=== PATIENT | male | born 1990 | race Caucasian/White ===

== ENCOUNTER 2021-04-27 12:16 | Emergency (ER) | payer SELFPAY ==
[~2021-04-27] VITALS: Ht 180 cm; Wt 83.0 kg
--- NOTE | 2021-04-27 13:00 | ED Psychosocial ---
General Stated Complaint: OD Source: patient Exam Limitations: no limitations History of Present Illness Date Seen by Provider: Apr 27, 2021 Time Seen by Provider: 13:00 Initial Comments This is a 30-year-old male presents to the ER with his dad for concerns of heroin overdose around 0500 this morning states that he was at [facility] for psychiatric evaluation. He can be admitted to [facility] for inpatient treatment of his alcohol and drug addiction. However psychiatry felt patient needed to go to ER in case Narcan wore off that he did have heroin treatment. Upon arrival patient is alert and oriented x4. He is cooperative, good eye contact, no suicidal or homicidal ideation. Only physical complaint this time is cramps in his bilateral lower extremities. Allergies and Home Medications Allergies Coded Allergies: No Known Drug Allergies (Unverified , 04/27/21) Physical Exam Vital Signs - First Documented 04/27/21 12:47 Temp 37.3 Pulse 99 Resp 18 B/P (MAP) 120/83 (95) O2 Delivery Room Air Capillary Refill : Height, Weight, BMI Height: '" Weight: lbs. oz. kg; BMI Method: Progress/Results/Core Measures Results/Orders Lab Results Laboratory Tests Test 04/27/21 13:47 04/27/21 14:05 Range/Units Urine Color YELLOW Urine Clarity CLEAR Urine pH 6.0 5-9 Urine Specific [place] >=1.030 1.016-1.022 Urine Protein TRACE H NEGATIVE Urine Glucose (UA) NEGATIVE NEGATIVE Urine Ketones 1+ H NEGATIVE Urine Nitrite NEGATIVE NEGATIVE Urine Bilirubin NEGATIVE NEGATIVE Urine Urobilinogen 0.2 < = 1.0 MG/DL Urine Leukocyte Esterase NEGATIVE NEGATIVE Urine RBC (Auto) 2+ H NEGATIVE Urine RBC 2-5 H /HPF Urine WBC 2-5 /HPF Urine Crystals PRESENT H /LPF Urine Amorphous Sediment MOD ALEXANDER URATES H /LPF Urine Bacteria NEGATIVE /HPF Urine Casts PRESENT /LPF Urine Hyaline Casts 2-5 H /LPF Urine Mucus SMALL H /LPF Urine Culture Indicated NO Urine Opiates Screen NEGATIVE NEGATIVE Urine Oxycodone Screen NEGATIVE NEGATIVE Urine Methadone Screen NEGATIVE NEGATIVE Urine Propoxyphene Screen NEGATIVE NEGATIVE Urine Barbiturates Screen NEGATIVE NEGATIVE Ur Tricyclic Antidepressants Screen NEGATIVE NEGATIVE Urine Phencyclidine Screen NEGATIVE NEGATIVE Urine Amphetamines Screen POSITIVE H NEGATIVE Urine Methamphetamines Screen POSITIVE H NEGATIVE Urine Benzodiazepines Screen POSITIVE H NEGATIVE Urine Cocaine Screen NEGATIVE NEGATIVE Urine Cannabinoids Screen NEGATIVE NEGATIVE White Blood Count 8.9 4.3-11.0 10^3/uL Red Blood Count 4.83 4.30-5.52 10^6/uL Hemoglobin 14.3 13.3-17.7 g/dL Hematocrit 44 40-54 % Mean Corpuscular Volume 90 80-99 fL Mean Corpuscular Hemoglobin 30 25-34 pg Mean Corpuscular Hemoglobin Concent 33 32-36 g/dL Red Cell Distribution Width 13.9 10.0-14.5 % Platelet Count 343 130-400 10^3/uL Mean Platelet Volume 9.2 9.0-12.2 fL Immature Granulocyte % (Auto) 1 % Neutrophils (%) (Auto) 66 42-75 % Lymphocytes (%) (Auto) 26 12-44 % Monocytes (%) (Auto) 7 0-12 % Eosinophils (%) (Auto) 0 0-10 % Basophils (%) (Auto) 0 0-10 % Neutrophils # (Auto) 5.9 1.8-7.8 10^3/uL Lymphocytes # (Auto) 2.3 1.0-4.0 10^3/uL Monocytes # (Auto) 0.7 0.0-1.0 10^3/uL Eosinophils # (Auto) 0.0 0.0-0.3 10^3/uL Basophils # (Auto) 0.0 0.0-0.1 10^3/uL Immature Granulocyte # (Auto) 0.1 0.0-0.1 10^3/uL Sodium Level 134 L 135-145 MMOL/L Potassium Level 3.8 3.6-5.0 MMOL/L Chloride Level 102 98-107 MMOL/L Carbon Dioxide Level 24 21-32 MMOL/L Anion Gap 8 5-14 MMOL/L Blood Urea Nitrogen 12 7-18 MG/DL Creatinine 1.00 0.60-1.30 MG/DL Estimat Glomerular Filtration Rate 87 BUN/Creatinine Ratio 12 Glucose Level 132 H 70-105 MG/DL Calcium Level 9.1 8.5-10.1 MG/DL Corrected Calcium 8.9 8.5-10.1 MG/DL Total Bilirubin 0.5 0.1-1.0 MG/DL Aspartate Amino Transf (AST/SGOT) 257 H 5-34 U/L Alanine Aminotransferase (ALT/SGPT) 220 H 0-55 U/L Alkaline Phosphatase 83 40-136 U/L Total Protein 7.7 6.4-8.2 GM/DL Albumin 4.2 3.2-4.5 GM/DL Amylase Level 759 H 25-125 U/L TSH [facility] Testing 0.39 0.35-4.94 UIU/ML Salicylates Level < 5.0 L 5.0-20.0 MG/DL Acetaminophen Level < 10 L 10-30 UG/ML Serum Alcohol < 10 <10 MG/DL My Orders Orders - ALICIA GAXIOLA APRN Ua Culture If Indicated (04/27/21 12:46) Drug Screen Stat (Urine) (04/27/21 12:46) Alcohol (04/27/21 12:46) Cbc With Automated Diff (04/27/21 12:59) Comprehensive Metabolic Panel (04/27/21 12:59) Acetaminophen (04/27/21 12:59) Salicylate (04/27/21 12:59) Ekg Tracing (04/27/21 12:59) Thyroid Analyzer (04/27/21 12:59) Amylase (04/27/21 12:59) Ns Iv 1000 Ml (Sodium Chloride 0.9%) (04/27/21 14:30) Medications Given in ED Current Medications Medications Dose Ordered Sig/Sandi Route Start Time Stop Time Status Last Admin Dose Admin Sodium Chloride 1,000 ml @ 999 mls/hr Q1H ONCE IV 04/27/21 14:30 04/27/21 15:30 DC 04/27/21 14:35 999 MLS/HR Vital Signs/I&O 04/27/21 12:47 Temp 37.3 Pulse 99 Resp 18 B/P (MAP) 120/83 (95) O2 Delivery Room Air Departure Impression Primary Impression: Alcohol abuse Additional Impression: Drug abuse Disposition: 01 HOME, SELF-CARE Condition: Improved Departure-Patient Inst. Decision time for Depature: 15:57 Referrals: NO,LOCAL PHYSICIAN (PCP/Family) Primary Care Physician Patient Instructions: Drug Abuse Treatment Add. Discharge Instructions: Plan: 1. Refrain from alcohol and drug intake. Please present to the alcohol treatment center and [facility] at 9:30 AM tomorrow morning. Drink plenty of fluids. 2. Make sure you drink plenty of fluids today. Please ensure someone stays with patient today. 3. Return to the ER if you have any new, concerning, worsening symptoms. ALICIA GAXIOLA [address] [employer] Apr 27, 2021 13:00
[2021-04-27 14:07] LABS: BILIRUBIN,URINE NEGATIVE (NEGATIVE); CLARITY,URINE CLEAR; COLOR,URINE YELLOW; GLUCOSE, URINE (UA) NEGATIVE (NEGATIVE); KETONES,URINE 1+ (NEGATIVE); LEUKOCYTE ESTERASE ,URINE NEGATIVE (NEGATIVE); NITRITE,URINE NEGATIVE (NEGATIVE); PROTEIN,URINE TRACE (NEGATIVE)
[2021-04-27 14:15] LABS: BASOPHILS % (AUTO) 0 % (0-10); EOSINOPHILS % (AUTO) 0 % (0-10); HEMATOCRIT 44 % (40-54); HEMOGLOBIN 14.3 g/dL (13.3-17.7); LYMPHOCYTES # (AUTO) 2.3 10^3/uL (1.0-4.0); LYMPHOCYTES % (AUTO) 26 % (12-44); MEAN CORPUSCULAR HEMOGLOBIN 30 pg (25-34); MEAN CORPUSCULAR HGB CONC 33 g/dL (32-36); MEAN CORPUSCULAR VOLUME 90 fL (80-99); MEAN PLATELET VOLUME 9.2 fL (9.0-12.2); MONOCYTES # (AUTO) 0.7 10^3/uL (0.0-1.0); MONOCYTES % (AUTO) 7 % (0-12); NEUTROPHILS # (AUTO) 5.9 10^3/uL (1.8-7.8); NEUTROPHILS % (AUTO) 66 % (42-75); PLATELET COUNT 343 10^3/uL (130-400); WHITE BLOOD COUNT 8.9 10^3/uL (4.3-11.0)
[2021-04-27 14:16] LABS: AMORPHOUS SEDIMENT,UR MOD AMOR URATES /LPF; BACTERIA,URINE NEGATIVE /HPF
[2021-04-27 14:19] LABS: AMPHETAMINE SCREEN, URINE POSITIVE (NEGATIVE); BARBITURATE SCREEN URINE NEGATIVE (NEGATIVE); BENZODIAZEPINES SCREEN URINE POSITIVE (NEGATIVE); CANNABINOID SCREEN, URINE NEGATIVE (NEGATIVE); COCAINE SCREEN URINE NEGATIVE (NEGATIVE); METHADONE STAT NEGATIVE (NEGATIVE); METHAMPHETAMINE SCREEN URINE S POSITIVE (NEGATIVE); OPIATE SCREEN URINE NEGATIVE (NEGATIVE); OXYCODONE STAT NEGATIVE (NEGATIVE); PROPOXYPHENE STAT NEGATIVE (NEGATIVE); TRICYCLIC ANTIDEPRESSANTS SCRE NEGATIVE (NEGATIVE)
[2021-04-27 14:30] LABS: CHLORIDE 102 MMOL/L (98-107); POTASSIUM 3.8 MMOL/L (3.6-5.0); SODIUM 134 MMOL/L (135-145)
[2021-04-27] MEDS ORDERED: NS IV 1000 ML 1,000 ML IV ONE (14:30)
[2021-04-27 14:31] LABS: ALBUMIN 4.2 GM/DL (3.2-4.5)
[2021-04-27 14:32] LABS: AMYLASE 759 U/L (25-125); CALCIUM 9.1 MG/DL (8.5-10.1)
[2021-04-27 14:33] LABS: GLUCOSE 132 MG/DL (70-105); TOTAL PROTEIN 7.7 GM/DL (6.4-8.2)
[2021-04-27 14:34] LABS: CARBON DIOXIDE 24 MMOL/L (21-32)
[2021-04-27 14:35] LABS: BILIRUBIN,TOTAL 0.5 MG/DL (0.1-1.0)
[2021-04-27 14:37] LABS: ALKALINE PHOSPHATASE 83 U/L (40-136); GFR ESTIMATED 87
[2021-04-27 14:38] LABS: BUN/CREATININE RATIO 12
[2021-04-27 14:39] LABS: ACETAMINOPHEN < 10 UG/ML (10-30)
[2021-04-27 14:40] LABS: ALANINE AMINOTRANSFERASE 220 U/L (0-55); SALICYLATE < 5.0 MG/DL (5.0-20.0)
[2021-04-27 16:29] VITALS: BP 114/58
== END 2021-04-27 16:29 | disposition home or self-care (01) ==
LOC: ER 12:23
DX: F10.10 Alcohol abuse, uncomplicated (principal); F19.10 Other psychoactive substance abuse, uncomplicated
CPT/HCPCS: 80053; 80306; 81000; 82150; 83690; 84443; 85025; 93005; 99284; G0480 ×3; 36415; 80320; 80329